=== PATIENT | male | born 1960 | race African-American/Black ===

== ENCOUNTER 2020-11-21 07:00 | Inpatient (IN) | payer OTHER ==
[2020-11-21 07:56] LABS: #Eosinphils 0.3 10x3/uL (0.0-0.5); #Monocytes 0.7 10x3/uL (0.0-1.1); #Neutrophils 8.8 10x3/uL (1.5-8.4); %Basophils 0.4 % (0.0-2.0); %Eosinophils 2.7 % (0.0-6.0); %Lymphocytes 8.9 % (18.0-47.0); %Monocytes 6.3 % (0.0-10.0); Hemoglobin 10.1 g/dL (13.5-17.5); Mean Corpuscular HGB CONC 30.7 g/dL (32.0-36.0); Mean Corpuscular Volume 94.5 fl (81.2-95.1); Mean Platelet Volume 9.1 fl (7.4-10.4); Platelet Count 480 10x3/uL (150-450); RBC Distribution Width 15.3 % (11.5-14.5); Red Blood Cell (RBC) Count 3.48 10x6/uL (4.32-5.72); White Blood Cell (WBC) Count 10.8 10x3/uL (3.5-10.5)
[2020-11-21 08:12] LABS: ALT (SGPT) 90 U/L (8-55); AST (SGOT) 52 U/L (5-34); Albumin 3.4 g/dL (3.4-4.8); Alkaline Phosphatase 112 U/L (40-110); Anion Gap 16 mmol/L (10-20); BUN (Urea Nitrogen) 12 mg/dL (8.4-25.7); Bilirubin, Total 0.6 mg/dL (0.2-1.2); Calc. Creatinine Clearance 0 mL/min (70-130); Calcium 9.2 mg/dL (7.8-10.44); Carbon Dioxide 20 mmol/L (23-31); Chloride 109 mmol/L (98-107); Globulin 4.1 g/dL (2.4-3.5); Glucose 91 mg/dL (80-115); Potassium 4.6 mmol/L (3.5-5.1); Protein, Total 7.5 g/dL (5.8-8.1); Sodium 140 mmol/L (136-145)
[2020-11-21 09:30] LABS: INR-International Normal Ratio 1.2; PTT 23.8 sec (22.0-33.0); Prothrombin Time 13.5 sec (9.5-12.1)
[2020-11-21 09:50] LABS: CKMB 1.3 ng/mL (0-6.6)
[2020-11-21] MEDS ORDERED: Acetaminophen 325 MG TAB PO PRN (14:50)
[2020-11-21] MEDS ORDERED: Furosemide 40 MG/4 ML VIAL ONE (15:39)
[2020-11-21 18:25] LABS: Troponin I 0.044 ng/mL (< 0.028)
[2020-11-21 19:03] VITALS: BMI 24.0
[2020-11-21 20:48] LABS: SARS-CoV-2 PCR by NAA Not Detected (NotDetected)
[2020-11-21] MEDS: Metoprolol Tartrate 25 MG TAB PO SCH (21:02)
[2020-11-22 05:18] LABS: #Basophils 0.1 10x3/uL (0.0-0.2); #Eosinphils 0.3 10x3/uL (0.0-0.5); #Monocytes 0.5 10x3/uL (0.0-1.1); #Neutrophils 5.1 10x3/uL (1.5-8.4); %Basophils 0.7 % (0.0-2.0); %Eosinophils 4.6 % (0.0-6.0); %Lymphocytes 16.2 % (18.0-47.0); %Monocytes 6.4 % (0.0-10.0); %Neutrophils 71.3 % (40.0-75.0); Hemoglobin 9.3 g/dL (13.5-17.5); Mean Corpuscular HGB CONC 30.5 g/dL (32.0-36.0); Mean Corpuscular Hemoglobin 28.6 pg (27.0-33.0); Mean Corpuscular Volume 93.8 fl (81.2-95.1); Mean Platelet Volume 9.2 fl (7.4-10.4); Platelet Count 469 10x3/uL (150-450); RBC Distribution Width 15.6 % (11.5-14.5); Red Blood Cell (RBC) Count 3.25 10x6/uL (4.32-5.72); White Blood Cell (WBC) Count 7.1 10x3/uL (3.5-10.5)
[2020-11-22 05:21] LABS: Anion Gap 14 mmol/L (10-20); BUN (Urea Nitrogen) 14 mg/dL (8.4-25.7); Calc. Creatinine Clearance 80 mL/min (70-130); Calcium 8.8 mg/dL (7.8-10.44); Carbon Dioxide 21 mmol/L (23-31); Chloride 106 mmol/L (98-107); Glucose 105 mg/dL (80-115); Potassium 3.9 mmol/L (3.5-5.1); Sodium 137 mmol/L (136-145)
[2020-11-22 05:29] LABS: Troponin I 0.034 ng/mL (< 0.028)
[2020-11-22] MEDS ORDERED: Metoprolol Tartrate 25 MG TAB PO SCH (09:00)
[2020-11-22] MEDS ORDERED: Terazosin HCl 5 MG CAP PO SCH (09:00)
[2020-11-22] MEDS: Clopidogrel Bisulfate 75 MG TAB PO SCH (09:44)
[2020-11-22] MEDS: Furosemide 40 MG/4 ML VIAL SLOW IVP SCH (09:44)
[2020-11-22] MEDS: Aspirin Chewable 81 MG TAB PO SCH (09:44)
[2020-11-22] MEDS: Atorvastatin Calcium 40 MG TAB PO SCH (09:44)
[2020-11-22] MEDS: Ferrous Sulfate 325 MG TAB PO SCH (09:45)
[2020-11-22] MEDS: Metoprolol Tartrate 25 MG TAB PO SCH ×2 (09:45→20:46)
[2020-11-22] MEDS ORDERED: Terazosin HCl 1 MG CAP PO SCH (10:00)
[2020-11-23 05:41] LABS: Anion Gap 14 mmol/L (10-20); BUN (Urea Nitrogen) 20 mg/dL (8.4-25.7); Calc. Creatinine Clearance 82 mL/min (70-130); Calcium 8.6 mg/dL (7.8-10.44); Carbon Dioxide 23 mmol/L (23-31); Chloride 106 mmol/L (98-107); Glucose 90 mg/dL (80-115); Potassium 3.8 mmol/L (3.5-5.1); Sodium 139 mmol/L (136-145)
[2020-11-23 05:43] LABS: #Basophils 0.1 10x3/uL (0.0-0.2); #Eosinphils 0.3 10x3/uL (0.0-0.5); #Monocytes 0.6 10x3/uL (0.0-1.1); #Neutrophils 5.7 10x3/uL (1.5-8.4); %Basophils 0.6 % (0.0-2.0); %Eosinophils 3.7 % (0.0-6.0); %Lymphocytes 16.4 % (18.0-47.0); %Monocytes 7.1 % (0.0-10.0); %Neutrophils 71.7 % (40.0-75.0); Hemoglobin 9.1 g/dL (13.5-17.5); Mean Corpuscular HGB CONC 31.2 g/dL (32.0-36.0); Mean Corpuscular Hemoglobin 29.3 pg (27.0-33.0); Mean Corpuscular Volume 93.9 fl (81.2-95.1); Mean Platelet Volume 9.5 fl (7.4-10.4); Platelet Count 463 10x3/uL (150-450); RBC Distribution Width 15.2 % (11.5-14.5); Red Blood Cell (RBC) Count 3.11 10x6/uL (4.32-5.72); White Blood Cell (WBC) Count 7.9 10x3/uL (3.5-10.5)
[2020-11-23] MEDS ORDERED: Terazosin HCl 1 MG CAP PO SCH (09:00)
[2020-11-23] MEDS: Metoprolol Tartrate 25 MG TAB PO SCH (09:12)
[2020-11-23] MEDS: Aspirin Chewable 81 MG TAB PO SCH (09:12)
[2020-11-23] MEDS: Clopidogrel Bisulfate 75 MG TAB PO SCH (09:12)
[2020-11-23] MEDS: Atorvastatin Calcium 40 MG TAB PO SCH (09:13)
[2020-11-23] MEDS: Furosemide 40 MG/4 ML VIAL SLOW IVP SCH (09:13)
[2020-11-23] MEDS: Ferrous Sulfate 325 MG TAB PO SCH (09:13)
[2020-11-23 17:06] VITALS: BP 99/71; TEMP 98.5
== END 2020-11-23 17:30 | DRG 189 ==
LOC: CSHERS 07:00 → SUATTDRO 07:00 → CSHTELE 12:36 → UNDOADMOB 14:12 → CSHTELE 14:12 → OBSVTOIN 14:13 → INTOOBSV 14:13
PROVIDERS: ADMIT Internal Medicine; ATTEND Family Medicine
DX: J96.01 Acute respiratory failure with hypoxia (principal); J90 Pleural effusion, not elsewhere classified; J98.11 Atelectasis; I10 Essential (primary) hypertension; Z95.1 Presence of aortocoronary bypass graft; Z86.16 Personal history of COVID-19; Z20.822 Contact with and (suspected) exposure to COVID-19
CPT/HCPCS: 36415; 71045; 71275; 80048; 80053; 82553; 83880; 84484; 85025; 85610; 85730; 87635; 93005; 93306; 94760; 96374; J1940; U0003; U0005